=== PATIENT | female | born 1995 | race Caucasian/White ===

== ENCOUNTER → 2017-04-12 | Outpatient (CLI) | payer MEDICAID | LOC: FIMAGING 12:47 | PROVIDERS: ATTEND Physician Assistant | DX: Z34.02 Encounter for supervision of normal first pregnancy, second trimester (principal); Z3A.22 22 weeks gestation of pregnancy ==

== ENCOUNTER 2018-06-05 12:34 | Emergency (ER) | payer MEDICAID ==
[2018-06-05 12:38] VITALS: BP 145/111
--- NOTE | 2018-06-05 12:57 | EDPHY ---
H & P Stated Complaint: rolled rt ankle and felt a "pop" Time Seen by Provider: 06/05/18 12:38 HPI/ROS: CHIEF COMPLAINT: Right lateral ankle pain HISTORY OF PRESENT ILLNESS: 22-year-old female rolled her right ankle 2 weeks ago an has been feeling improvement however today she misstepped and rolled her foot again is now complaining of right lateral ankle pain with noted soft tissue swelling and inability to bear weight. No fall from height. No calcaneus pain. No proximal tibia or fibula pain. No paresthesia. PHYSICAL EXAM (Prior to examination, patient consented to physical exam, hands were washed and my usual and customary physical exam procedures followed) 1) GENERAL: Well-developed, well-nourished, alert and oriented. Appears to be in no acute distress. 2) HEAD: Normocephalic 3) HEENT: Pupils equal, round, reactive to light bilaterally. 4) LUNGS: Breathing comfortably. 5) MUSCULOSKELETAL: Soft tissue swelling and tender to palpation lateral malleolus. Intact skin. No skin changes. proximal tibia and fibula nontender .5th MT nontender negative Wheat test, compartments soft 6) SKIN: 7) VASCULAR: DP,PT pulses and cap refill present and brisk DIFFERENTIAL DIAGNOSIS: in no particular order including but not limited to fracture, sprain, compartment syndrome Procedure: Crutches indications for crutch use discussed with patient. Patient fitted for crutches by ER staff. Observed ambulating with crutches. I think the patient has the capacity to safely use crutches. Usual and customary crutch walking precautions provided Procedure: Splint A stacy boot splint was applied by ER aerospace technician. After application of the splint I returned and re-examined the patient. The splint was adequately immobilizing the joint and distal to the splint the patient's circulation and sensation were intact. Patient shows no signs of compartment syndrome. Was given orthopedic precautions. - Personal History LMP (Females 10-55): Extended Cycle BCP/Inj Current Tetanus/Diphtheria Vaccine: Yes Current Tetanus Diphtheria and Acellular Pertussis (TDAP): Yes - Medical/Surgical History Hx Asthma: No Hx Chronic Respiratory Disease: No Hx Diabetes: No Hx Cardiac Disease: No Hx Renal Disease: No Hx Cirrhosis: No Hx Alcoholism: No Hx HIV/AIDS: No Hx Splenectomy or Spleen Trauma: No Other PMH: Gallstones - Social History Smoking Status: Never smoked Constitutional: Initial Vital Signs Temperature (C) 36.9 C 06/05/18 12:35 Heart Rate 97 06/05/18 12:35 Respiratory Rate 16 06/05/18 12:35 Blood Pressure 145/111 H 06/05/18 12:35 O2 Sat (%) 97 06/05/18 12:35 O2 Delivery Mode Room Air Allergies/Adverse Reactions: No Known Allergies Allergy (Verified 09/15/17 15:37) Home Medications: Medication Instructions Recorded NK [No Known Home Meds] 09/15/17 Medical Decision Making - Diagnostics Imaging Results: Imaging Impressions Ankle X-Ray 06/05/18 12:35 Impression: Lateral ankle sprain. Images reviewed myself ED Course/Re-evaluation: Re-evaluation with serial exams. Neurovascular intact. Soft compartments no evidence of compartment syndrome. Discussed limitations of x-ray with the patient. Do not think that MRI indicated at this time. I think the patient can be discharged home with close follow-up with orthopedics. Stacy hamlin , crutches provided, Tylenol, Motrin recommended with NSAID precautions provided. Patient feels comfortable being discharged. All questions and concerns addressed by myself. Patient given my usual and customary discharge precautions and instructions regarding their clinical impression. Care of patient under supervision of secondary supervising physician Dr Franklin . Departure - Departure Disposition: Home, Routine, Self-Care Clinical Impression: Ankle sprain Qualifiers: Encounter type: initial encounter Involved ligament of ankle: unspecified ligament Laterality: right Qualified Code(s): S93.401A - Sprain of unspecified ligament of right ankle, initial encounter Condition: Good Instructions: Ankle Sprain (ED) Additional Instructions: Return to the ER immediately if you experience discoloration, have worsening pain, numbness, tingling, or any other symptoms that concern you. If you received x-rays in the emergency department today, be advised, that ligamentous , tendon, muscular, and other non-bony injury cannot be fully ruled out. Try to keep your affected extremity elevated above the level of your chest, and keep cold packs on the affected area, for the next 48 hours. Referrals: Katrin Jones MD [Medical Doctor] - 5-7 days, call for appt. Stand Alone Forms: School Excuse, Work Excuse
== END 2018-06-05 13:32 | disposition home or self-care (01) ==
DX: S93.401A Sprain of unspecified ligament of right ankle, initial encounter (principal); W18.40XA Slipping, tripping and stumbling without falling, unspecified, initial encounter; Y92.480 Sidewalk as the place of occurrence of the external cause
CPT/HCPCS: L4386